=== PATIENT | female | born 1985 | race Caucasian/White ===

== ENCOUNTER 2016-06-15 13:26 | Emergency (ER) | payer BC ==
[~2016-06-15] VITALS: Ht 157.5 cm; Wt 65.8 kg
--- NOTE | 2016-06-15 13:45 | NUR ---
PT BIB SELF C/O CP L SIDED SHARP STABBING LAST NIGHT FOR 15 MINUTES, NOW ONLY C/O SORENESS ON L CHEST. ALSO REPORTS TINGING ON THE TOP OF BOTH ARMS AND NURYS CHEEKS. RESP EVEN UNLABORED. SKIN WARM NONDIAPHORETIC. NAD NOTED. NO NEURO DEFICITS NOTED. AMBUALTORY WITH STEADY GAIT. IN ER BED 09 ON MONITOR. VSS.
[2016-06-15 14:35] VITALS: BP 100/56
--- NOTE | 2016-06-15 14:39 | NUR ---
Patient discharged to home in stable condition. Written and verbal after care instructions given. Patient verbalizes understanding of instruction. PROVIDED WITH COPY OF EKG FOR F/U WITH PCP AND CARDIOLOGY
== END 2016-06-15 14:40 | disposition home or self-care (01) ==
LOC: ER 13:29
DX: R07.89 Other chest pain (principal); Z88.2 Allergy status to sulfonamides
CPT/HCPCS: 71010-TC; A4606; Z7610

== ENCOUNTER 2019-03-11 19:27 | Emergency (ER) | payer BC ==
[~2019-03-11] VITALS: Ht 154.9 cm; Wt 63.5 kg
[2019-03-11] MEDS ORDERED: IV NS 0.9% 1,000 ML BAG IV ONE (20:30)
[2019-03-11 20:35] LABS: BASOPHILS # (AUTO) 0.1 /CMM (0.0-0.2); EOSINOPHILS % (AUTO) 1.3 % (0.0-6.0); HEMATOCRIT 34 % (33-45); HEMOGLOBIN 10.8 g/dL (11.5-14.8); LYMPHOCYTES # (AUTO) 2.6 /CMM (0.8-4.8); LYMPHOCYTES % (AUTO) 26.7 % (20.0-44.0); MEAN CORPUSCULAR HGB CONC 32 g/dl (31.0-36.0); MEAN CORPUSCULAR VOLUME 73 fL (82-100); MONOCYTES # (AUTO) 0.7 /CMM (0.1-1.30); MONOCYTES % (AUTO) 6.6 % (2.0-12.0); NEUTROPHILS # (AUTO) 6.3 /CMM (1.8-8.9); NEUTROPHILS % (AUTO) 64.4 % (43.0-81.0); PLATELET COUNT (AUTO) 354 /CMM (150-450); RED BLOOD CELL COUNT(AUTO) 4.64 MIL/uL (4.0-5.2); WHITE BLOOD COUNT (AUTO) 9.8 K/uL (4.3-11.0)
--- NOTE | 2019-03-11 20:40 | NUR ---
PT PRESENTED TO THE ER WITH A C/O BLE HEAVINESS W/TINGLING, LIGHTHEADEDNESS, SLIGHT INTERMITTENT CHEST DISCOMFORT, FACIAL TINGLING
--- NOTE | 2019-03-11 20:44 | NUR ---
URINE COLLECTED AND SENT TO THE LAB
[2019-03-11 20:50] LABS: ALBUMIN 3.8 g/dL (3.4-5.0); BILIRUBIN,TOTAL 0.3 mg/dL (0.2-1.0); CREATININE 0.7 mg/dL (0.6-1.3); POTASSIUM 3.4 mmol/L (3.5-5.1); TOTAL PROTEIN, SERUM 7.3 g/dL (6.4-8.2)
[2019-03-11 20:52] LABS: APPEARANCE,URINE Clear (CLEAR); BILIRUBIN,URINE Negative (NEGATIVE); BLOOD, URINE Large Ery/uL (NEGATIVE); COLOR,URINE Yellow (YELLOW); KETONES,URINE Negative (NEGATIVE); LEUKOCYTE ESTERASE ,URINE Negative (NEGATIVE); NITRITE, URINE Negative (NEGATIVE); PROTEIN,URINE Negative (NEGATIVE); UGLUCOSE Negative (NEGATIVE); UROBILINOGEN,URINE 0.2 EU/dL (0.2)
[2019-03-11 21:39] LABS: BACTERIA,URINE None seen /HPF (None Seen); SQUAMOUS EPITHELIAL CELL,UR Few /HPF (None Seen); WBC,URINE NONE SEEN /HPF (0-3)
[2019-03-11 21:53] VITALS: BP 118/74
--- NOTE | 2019-03-11 22:01 | NUR ---
Patient discharged to home in stable condition. Written and verbal after care instructions given. Patient verbalizes understanding of instruction. PT AMBULATED OUT WITH A STEADY GAIT.
== END 2019-03-11 22:01 | disposition home or self-care (01) ==
LOC: ER 19:30
DX: R20.2 Paresthesia of skin (principal); R42 Dizziness and giddiness; D64.9 Anemia, unspecified; F32.9 Major depressive disorder, single episode, unspecified; F41.9 Anxiety disorder, unspecified; Z88.2 Allergy status to sulfonamides; Z60.2 Problems related to living alone
CPT/HCPCS: 36415; 80053; 81001; 84703; 85025; 93005; 96360; 99284; J7030; 81000-TC